=== PATIENT | female | born 1945 | race Caucasian/White ===

== ENCOUNTER 2020-03-14 05:54 | Emergency (ER) | payer MEDICARE, BC ==
--- NOTE | 2020-03-14 06:32 | ER Document Report ---
ED General - General Chief Complaint: Blood Pressure Problem Stated Complaint: HIGH BLOOD PRESSURE Time Seen by Provider: 03/14/20 06:32 TRAVEL OUTSIDE OF THE [place] IN LAST 30 DAYS: No - HPI Patient complains to provider of: hypertension Notes: 74-year-old female history of Parkinson's presents with asymptomatic hypertension. Patient has been struggling with very high blood pressure for the last month. Scheduled to see her family doctor this morning. Woke up to use the bathroom at 230 checked her blood pressure was over 200 systolic. Denies chest pain, belly pain, headache, altered mental status. - Related Data Allergies/Adverse Reactions: erythromycin base [Erythromycin Base] Allergy (Verified 07/11/11 12:20) nitrofurantoin [From Macrobid] Allergy (Verified 07/11/11 12:20) nitrofurantoin macrocrystalline [From Macrobid] Allergy (Verified 07/11/11 12:20) Penicillins Allergy (Verified 07/11/11 12:20) Past Medical History - Social History Smoking Status: Unknown if Ever Smoked Family History: None - Past Medical History Cardiac Medical History: Reports: Hx Atrial Fibrillation, Hx Hypercholesterolemia - Immunizations Hx Diphtheria, Pertussis, Tetanus Vaccination: Yes - 2008 Review of Systems - Review of Systems Notes: REVIEW OF SYSTEMS: CONSTITUTIONAL: -fevers, -chills EENT: -eye pain, -difficulty swallowing, -nasal congestion CARDIOVASCULAR: -chest pain, -syncope. RESPIRATORY: -cough, -SOB GASTROINTESTINAL: -abdominal pain, -nausea, -vomiting, -diarrhea GENITOURINARY: -dysuria, -hematuria MUSCULOSKELETAL: -back pain, -neck pain SKIN: -rash or skin lesions. HEMATOLOGIC: -easy bruising or bleeding. LYMPHATIC: -swollen, enlarged glands. NEUROLOGICAL: -altered mental status or loss of consciousness, -headache, - neurologic symptoms PSYCHIATRIC: -anxiety, -depression. ALL OTHER SYSTEMS REVIEWED AND NEGATIVE. Physical Exam - Vital signs Vitals: Temp Pulse Resp BP Pulse Ox 97.7 F 80 18 204/91 H 98 03/14/20 05:59 03/14/20 05:59 03/14/20 05:59 03/14/20 05:59 03/14/20 05:59 - Notes Notes: PHYSICAL EXAMINATION: GENERAL: Well-appearing, well-nourished and in no acute distress. HEAD: Atraumatic, normocephalic. EYES: Pupils equal round, sclera anicteric, conjunctiva are normal. ENT: Surgical mask in place. NECK: Normal range of motion, LUNGS: No respiratory Distress, normal chest rise EXTREMITIES: Normal range of motion, No cyanosis. NEUROLOGICAL: Cranial nerves grossly intact. Normal speech, PSYCH: Normal mood, normal affect. SKIN: Warm, Dry, Course - Re-evaluation Re-evalutation: 03/14/20 08:54 Well-appearing female no acute distress presents with asymptomatic hypertension, EKG nonischemic, extensive lab work-up reassuring. Patient is scheduled to see her family doctor this morning. Recommend she discuss her blood pressure with the family doctor return any worsens or changes 03/14/20 10:04 Lab work-up finds no endorgan damage, benign EKG will be discharged home improved follow-up PCP today - Vital Signs Vital signs: Temp Pulse Resp BP Pulse Ox 97.7 F 80 18 204/91 H 98 03/14/20 05:59 03/14/20 05:59 03/14/20 05:59 03/14/20 05:59 03/14/20 05:59 - Laboratory Result Diagrams: 03/14/20 09:08 03/14/20 09:08 Laboratory results interpreted by me: 03/14/20 03/14/20 09:08 09:08 MCH 34.4 H BUN 22 H Glucose 134 H - EKG Interpretation by Me Additional EKG results interpreted by me: 03/14/20 10:05 Normal sinus rhythm, no ST elevations or depressions, no pathologic T wave inversion, normal QRS Discharge - Discharge Clinical Impression: Asymptomatic hypertension Condition: Stable Disposition: HOME, SELF-CARE Additional Instructions: See your PCP Forms: Elevated Blood Pressure
[2020-03-14 09:06] LABS: APPEARANCE,URINE CLEAR; BILIRUBIN,URINE NEGATIVE (NEGATIVE); COLOR,URINE STRAW; GLUCOSE, URINE NEGATIVE (NEGATIVE); KETONES,URINE NEGATIVE (NEGATIVE); PROTEIN,URINE NEGATIVE (NEGATIVE); URINE SPECIFIC GRAVITY 1.012; UROBILINOGEN,URINE NEGATIVE mg/dL (<2.0)
[2020-03-14 09:37] LABS: ANION GAP 8 (5-19); BLOOD UREA NITROGEN 22 mg/dL (7-20); CALCIUM 9.2 mg/dL (8.4-10.2); CARBON DIOXIDE 25 mmol/L (22-30); CHLORIDE 107 mmol/L (98-107); GLUCOSE 134 mg/dL (75-110); POTASSIUM 4.2 mmol/L (3.6-5.0)
[2020-03-14 09:50] LABS: ABSOLUTE LYMPHOCYTES (AUTO) 0.8 10^3/uL (0.5-4.7); ABSOLUTE MONOCYTES (AUTO) 0.2 10^3/uL (0.1-1.4); ABSOLUTE NEUT (AUTO) 3.1 10^3/uL (1.7-8.2); BASOPHILS % (AUTO) 0.5 % (0-2); EOSINOPHILS % (AUTO) 0.5 % (0-6); HEMATOCRIT 42.4 % (36.0-47.0); LYMPHOCYTES % (AUTO) 19.2 % (13-45); MEAN CORPUSCULAR HEMOGLOBIN 34.4 pg (27.0-33.4); MEAN CORPUSCULAR HGB CONC 35.4 g/dL (32.0-36.0); MEAN CORPUSCULAR VOLUME 97 fl (80-97); MONOCYTES % (AUTO) 5.4 % (3-13); NT PRO BNP 70 pg/mL (<125); PLATELET COUNT 191 10^3/uL (150-450); RED BLOOD COUNT 4.35 10^6/uL (3.72-5.28); RED CELL DISTRIBUTION WIDTH 13.2 % (11.5-14.0); SEGMENTED NEUTROPHILS % (AUTO) 74.4 % (42-78); TOTAL CELLS COUNTED % (AUTO) 100 %; WHITE BLOOD COUNT 4.1 10^3/uL (4.0-10.5)
[2020-03-14 09:57] LABS: TROPONIN I < 0.012 ng/mL
[2020-03-14 10:17] VITALS: BP 118/87
--- NOTE | 2020-03-14 12:53 | EKG REPORT ---
SEVERITY:- ABNORMAL ECG - baseline ARTIFACTS SINUS RHYTHM QTC PROLONGATION 475MS, FEMALE. : Confirmed by: Yury Hammond MD 14-Mar-2020 12:53:08
== END 2020-03-14 10:16 | disposition home or self-care (01) ==
LOC: ER 05:54
DX: I10 Essential (primary) hypertension (principal); Z88.1 Allergy status to other antibiotic agents; Z88.0 Allergy status to penicillin
CPT/HCPCS: 36415; 80048; 81001; 83880; 84484; 85025; 93005; 93010; 99284